=== PATIENT | male | born 1950 | race African-American/Black ===

== ENCOUNTER 2020-03-05 07:47 | Day surgery (SDC) | payer OTHER ==
[2020-02-28 13:22] VITALS: BMI 31.4
[2020-03-05] MEDS ORDERED: PROPOFOL 20 ML ONE ×3 (08:14)
[2020-03-05] MEDS ORDERED: LIDOCAINE HCL/PF 2% SDV 5ML VIAL ONE (08:14)
[2020-03-05 09:09] VITALS: TEMP 97.9
[2020-03-05 09:22] VITALS: PULSE 75
[2020-03-05 09:44] VITALS: BP 134/74
== END 2020-03-05 09:44 | disposition home or self-care (01) ==
LOC: FASU-ENDO 07:47
PROVIDERS: ATTEND Internal Medicine Gastroenterology
PROC: 0DJD8ZZ Inspection of Lower Intestinal Tract, Via Natural or Artificial Opening Endoscopic (ICD-10-PCS; principal; 2020-03-05 08:41)
DX: Z09 Encounter for follow-up examination after completed treatment for conditions other than malignant neoplasm (principal); Z86.010 Personal history of colon polyps; K57.30 Diverticulosis of large intestine without perforation or abscess without bleeding